=== PATIENT | female | born 1965 | race Caucasian/White ===

== ENCOUNTER 2018-11-23 15:29 | Emergency (ER) | payer BC ==
--- OUTSIDE RECORDS SUMMARY | 2018-11-23 15:33 | XMS REPORT ---
:1965 [facility] Address [address] [place] [address] Dr. Waldrop [address] [place] [id number] Care Team Providers Name Role Phone Unavailable Unavailable Unavailable Problems This patient has no known problems. Allergies, Adverse Reactions, Alerts This patient has no known allergies or adverse reactions. Medications This patient has no known medications.
--- OUTSIDE RECORDS SUMMARY | 2018-11-23 15:33 | XMS REPORT | Clinical Summary ---
:1965 Author Organization [facility] Address [address] [place] [address] Care Team Providers Name Role Phone Jeovanny Campos MD Primary Care Provider Allergies No Known Allergies Medications Medication Sig Dispensed Refills Start Date End Date Status lisinopril Take 5 mg by 0 Active (PRINIVIL,ZESTRIL) mouth daily. 5 mg tablet sertraline (ZOLOFT) Take 50 mg by 0 Active 50 MG tablet mouth daily. pantoprazole Take 40 mg by 0 Active (PROTONIX) 40 MG EC mouth daily. tablet b complex vitamins Take 1 capsule 0 Active capsule by mouth daily. meloxicam (MOBIC) TAKE ONE (1) 30 tablet 2 11/04/2018 Active 15 mg tablet TABLET(S) BY MOUTH ONCE A DAY WITH FOOD. atorvastatin Take 10 mg by 0 01/19/2018 Discontinued (LIPITOR) 10 MG mouth. tablet omega-3 fatty Take 2 g by 0 03/30/2018 Discontinued acids-fish oil mouth daily. (FISH OIL) 300-1,000 mg capsule calcium carbonate Chew 1 tablet 0 03/30/2018 Discontinued (TUMS) 200 mg daily. calcium (500 mg) chewable tablet keTOROlac (TORadol) Take 1 tablet 15 tablet 0 04/02/2018 04/07/2018 10 mg tablet (10 mg total) by mouth 3 (three) times a day for 5 days. HYDROcodone-acetami Take 1-2 30 tablet 0 04/02/2018 04/09/2018 nophen (NORCO) tablets by 5-325 mg per tablet mouth every 6 (six) hours as needed (pain) for up to 7 days. Max Daily Amount: 8 tablets meloxicam (MOBIC) Take 1 tablet 30 tablet 3 06/12/2018 11/04/2018 Discontinued 15 mg tablet (15 mg total) by mouth daily for 120 days. Take with food Active Problems Problem Noted Date Sprain of interphalangeal joint of right index finger 06/12/2018 Tear of medial meniscus of right knee, current, initial encounter 03/29/2018 Overview: Added automatically from request for surgery [id number] Sprain of metacarpophalangeal (MCP) joint of right index finger 01/10/2018 Neck mass 01/05/2017 Encounters Date Type Specialty Care Team Description 11/04/2018 Refill Orthopedic Abel Handy Surgery MD Harish 06/12/2018 Office Visit Orthopedic Abel Handy Sprain of metacarpophalangeal (MCP) joint of right index finger, initial encounter ( Primary Dx); Surgery MD Harish Sprain of interphalangeal joint of right index finger, initial encounter 04/10/2018 Office Visit Orthopedic Timothy Cain Tear of medial meniscus of Surgery MD Christoph right knee, current, unspecified tear type, initial encounter (Primary Dx) 04/02/2018 Anesthesia Event General Surgery Jessika Velazquez FNP 04/02/2018 Surgery General Surgery Timothy Cain Right Knee Arthroscopic MD Christoph Partial Medial Menisectomy, lateral meniscus repair 04/02/2018 Hospital Encounter General Surgery Timothy Cain MD 03/30/2018 Pre-Admit Testing Pre-Admission Timothy Cain Preop testing ( Primary Dx) Appointment Testing MD Christoph 03/30/2018 Orders Only Orthopedic Krish, Acute medial meniscus tear Surgery Romina, MA of right knee, subsequent encounter (Primary Dx) 03/29/2018 Office Visit Orthopedic Timothy Cain Tear of medial meniscus of Surgery MD Christoph right knee, current, unspecified tear type, initial encounter (Primary Dx) 03/29/2018 Transcribe Orders Orthopedic Timothy Cain Tear of medial meniscus of Surgery MD Christoph right knee, current, initial encounter (Primary Dx) 03/22/2018 Hospital Encounter Radiology Darci Marrero Arthralgia of knee, right A., DO 03/09/2018 Orders Only Sports Medicine Nicole Campos, Arthralgia of knee, right MA (Primary Dx) 03/03/2018 Hospital Encounter Radiology Darci Marrero Sprain of A., DO metacarpophalangeal (MCP) joint of right index finger, subsequent encounter 02/14/2018 Office Visit Sports Medicine JanesDarci Sprain of metacarpophalangeal (MCP) joint of right index finger, subsequent encounter ( Primary Dx); A., DO Peripheral tear of medial meniscus of right knee as current injury, initial encounter; Chronic pain of right knee 01/19/2018 Office Visit Sports Medicine JanesDarci Sprain of metacarpophalangeal (MCP) joint of right index finger, initial encounter ( Primary Dx); A., DO Right hand pain after 11/22/2017 Immunizations Name Dates Previously Given Next Due Influenza, Unspecified 06/04/2017 Family History Medical History Relation Name Comments Cancer Father Diabetes Mother Relation Name Status Comments Father Mother Alive Social History Tobacco Use Types Packs/Day Years Used Date Former Smoker Cigarettes 0.25 10 Quit: 1990 Smokeless Tobacco: Never Used Tobacco Cessation: Counseling Given: No Comments: quit 37 yrs ago Alcohol Use Drinks/Week oz/Week Comments Yes 2 Cans of beer 1.2 2 drinks/day Sex Assigned at Date Recorded Not on file Job Start Date Occupation Industry Not on file Not on file Not on file Travel History Travel Start Travel End No recent travel history available. Last Filed Vital Signs Vital Sign Reading Time Taken Blood Pressure 153/74 04/02/2018 7:05 PM CDT Pulse 68 04/02/2018 7:05 PM CDT Temperature 36.8 C (98.2 F) 04/02/2018 6:45 PM CDT Respiratory Rate 20 04/02/2018 7:05 PM CDT Oxygen Saturation 100% 04/02/2018 7:05 PM CDT Inhaled Oxygen Concentration - - Weight 73.5 kg (162 lb) 04/02/2018 1:11 PM CDT Height 172.7 cm (5' 8") 03/30/2018 2:31 PM CDT Body Mass Index 24.63 04/02/2018 1:11 PM CDT Plan of Treatment Health Maintenance Due Date Last Done Comments CERVICAL CANCER SCREENING 12/14/1984 BREAST CANCER SCREENING 12/14/2013 COLON CANCER SCREENING 12/14/2013 SHINGLES VACCINES (#1) 12/14/2013 INFLUENZA VACCINE 04/04/2018 06/04/2017 Implants Implanted Type Area [employer] Device Shelf Model / Identifier Expiration Serial / Date Lot System Mnscl Rpr Crvd Fast-Fix 360 - [id number] Surgical Right: MEDINA AND 06/08/2020 [id number] / Implanted: 04/02/2018 (Quantity not on file) Implants; Knee NEPHEW / Expanders; ENDOSCOPY [id number] Extenders; Surgical Wires Procedures Procedure Name Priority Date/Time Associated Diagnosis Comments IA ARTHROCENTESIS Routine 06/12/2018 Sprain of Results for ASPIR&/INJ SMALL 1:50 PM CDT metacarpophalangeal (MCP) this procedure JT/BURSA W/O US joint of right index are in the finger, initial encounter results section. POC GLUCOSE Routine 04/02/2018 Results for 5:04 PM CDT this procedure are in the results section. IA AN PERIPHERAL Routine 04/02/2018 BLOCK POST-OP PAIN 2:24 PM CDT Procedure Note - Sheri Johnson MD - 04/02/2018 2:24 PM CDT Peripheral Block Performed by: SHERI JOHNSON Authorized by: SHERI JOHNSON Patient Location: Block room Start Time: 04/02/2018 2:18 PM End Time: 04/02/2018 2:24 PM Reason for Block: at surgeon's request, post-op pain management Staff: Anesthesiologist: SHERI JOHNSON Performed by: Anesthesiologist Preprocedure: patient identified, IV checked, site and side verified, risks and benefits discussed, procedure verified, surgical consent complete, patient position confirmed, monitors and equipment checked, pre-op evaluation complete and site marked Time Out Performed: 04/02/2018 2:18 PM Peripheral Nerve Block: Patient Position: Supine and pertinent anatomy defined Prep: ChloraPrep and DuraPrep Monitoring: Blood pressure monitoring, continuous pulse oximetry and heart rate Block Type: Saphenous Laterality: Right Injection Technique: Single injection Procedures: ultrasound guided Ultrasound documentation: Printed/placed in chart and still images obtained Local Infiltration (See MAR for details): Ropivacaine Needle: Needle Type: Pajunk Needle Gauge: 21 G Needle Length: 10 cm Assessment: Injection Assessment: Visualized needle/local anesthetic surrounding nerve , visualized pertinent vascular structures and nerves, needle tip visualized at all times during injection of medication, intermittent aspiration during local anesthetic administration and no symptoms of intraneural/intravenous injection Heart Rate Change: No Slow Fractionated Injection: Yes Block outcome: No apparent complications, patient comfortable and patient tolerated procedure well POC GLUCOSE Routine 04/02/2018 1:17 Results for PM CDT this procedure are in the results section. ZZESTIMATED GFR Routine 03/30/2018 2:43 Results for PM CDT this procedure are in the results section. HC COMPLETE BLD COUNT Routine 03/30/2018 2:43 Preop testing Results for W/AUTO DIFF PM CDT this procedure are in the results section. BASIC METABOLIC PANEL Routine 03/30/2018 2:43 Preop testing Results for PM CDT this procedure are in the results section. ECG PRE/POST OP Routine 03/30/2018 1:56 Preop testing Results for PM CDT this procedure are in the results section. MRI KNEE WO CONTRAST Routine 03/22/2018 3:57 Arthralgia of knee, right Results for RIGHT PM CDT this procedure are in the results section. MRI UPPER EXTREMITY Routine 03/03/2018 3:14 Sprain of Results for WO CONTRAST RIGHT PM CDT metacarpophalangeal (MCP) this procedure joint of right index are in the finger, subsequent results encounter section. IA ARTHROCENTESIS Routine 02/14/2018 3:30 Peripheral tear of medial Results for ASPIR&/INJ MAJOR PM CDT meniscus of right knee as this procedure JT/BURSA W/O US current injury, initial are in the encounter results section. XR KNEE 4+ VW RIGHT Routine 02/14/2018 3:24 Chronic pain of right Results for PM CDT knee this procedure are in the results section. XR HAND 3+ VW RIGHT Routine 01/19/2018 3:43 Right hand pain Results for PM CDT this procedure are in the results section. after 11/22/2017 Results Small Joint Arthrocentesis (06/12/2018 1:50 PM CDT) Narrative Performed At Abel Handy MD 06/12/20182:22 PM Small Joint Arthrocentesis Consent given by: patient Site marked: site marked Timeout: Immediately prior to procedure a time out was called to verify the correct patient, procedure, equipment, developer support engineer and site/side marked as required Supporting Documentation Indications: pain Procedure Details Preparation: Patient was prepped and draped in the usual sterile fashion Ultrasound guided: no Platelet Rich Plasma Used: no PRP Used Location: index finger - R index MCP Right side: Needle size: 27 G Right index finger medications administered: 3 mg betamethasone acetate & sodium phosphate 6 mg/mL; 0.5 mL lidocaine 10 mg/mL (1 %) Patient tolerance: patient tolerated the procedure well with no immediate complications POC glucose (04/02/2018 5:04 PM CDT)Only the most recent of2 resultswithin the time period is included. POC glucose 125 (H) 65 - 99 mg/dL [facility] DEPARTMENT OF PATHOLOGY AND Comment: GENOMIC MEDICINE Meter ID: [id number] Corporate Treasury Analyst: Brendan Stewart Performing Organization Address [facility] [place] [facility] DEPARTMENT OF PATHOLOGY [address] [place] [address] AND [email or web address] Estimated GFR (03/30/2018 2:43 PM CDT) GFR Non Af Amer 87 mL/min/1.73 m2 [facility] DEPARTMENT OF PATHOLOGY AND GENOMIC MEDICINE GFR Af Amer >90 mL/min/1.73 m2 [facility] DEPARTMENT OF Comment: PATHOLOGY AND GENOMIC Chronic kidney disease: <60 mL/min/1.73m2 MEDICINE Kidney failure: <15 mL/min/1.73m2 The estimated GFR is calculated from the IDMS-traceable Modification of Diet in Renal Disease Equation. The accuracy of the calculation is poor when the creatinine is normal. Calculated values >90 mL/min/1.73m2 are not reported. This equation has not been validated in children (<18 years), women, the elderly (>70 years), or ethnic groups other than Caucasians and Americans. Specimen Plasma specimen Performing Organization Address [facility] Phone Number [facility] DEPARTMENT OF PATHOLOGY [address] [place] [address] AND [email or web address] CBC with platelet and differential (03/30/2018 2:43 PM CDT) WBC 6.9 4.5 - 11.0 k/uL [facility] DEPARTMENT OF PATHOLOGY AND GENOMIC MEDICINE RBC 4.44 4.20 - 5.50 m/uL [facility] DEPARTMENT OF PATHOLOGY AND GENOMIC MEDICINE HGB 14.8 12.0 - 16.0 g/dL [facility] DEPARTMENT OF PATHOLOGY AND GENOMIC MEDICINE HCT 43.7 37.0 - 47.0 % [facility] DEPARTMENT OF PATHOLOGY AND GENOMIC MEDICINE MCV 98.4 82.0 - 100.0 fL [facility] DEPARTMENT OF PATHOLOGY AND GENOMIC MEDICINE MCH 33.3 27.0 - 34.0 pg [facility] DEPARTMENT OF PATHOLOGY AND GENOMIC MEDICINE MCHC 33.9 31.0 - 37.0 g/dL [facility] DEPARTMENT OF PATHOLOGY AND GENOMIC MEDICINE RDW - SD 45.6 37.0 - 55.0 fL [facility] DEPARTMENT OF PATHOLOGY AND GENOMIC MEDICINE MPV 10.8 6.9 - 11.0 fL [facility] DEPARTMENT OF PATHOLOGY AND GENOMIC MEDICINE Platelet count 257 150 - 400 K/uL [facility] DEPARTMENT OF PATHOLOGY AND GENOMIC MEDICINE Nucleated RBC 0.00 /100 WBC [facility] DEPARTMENT OF PATHOLOGY AND GENOMIC MEDICINE Neutrophils 65.6 39.0 - 69.0 % [facility] DEPARTMENT OF PATHOLOGY AND GENOMIC MEDICINE Lymphocytes 23.3 (L) 25.0 - 45.0 % [facility] DEPARTMENT OF PATHOLOGY AND GENOMIC MEDICINE Monocytes 7.0 0.0 - 10.0 % [facility] DEPARTMENT OF PATHOLOGY AND GENOMIC MEDICINE Eosinophils 2.8 0.0 - 5.0 % [facility] DEPARTMENT OF PATHOLOGY AND GENOMIC MEDICINE Basophils 1.0 0.0 - 1.0 % [facility] DEPARTMENT OF PATHOLOGY AND GENOMIC MEDICINE Immature granulocytes 0.3 0.0 - 1.0 % [facility] DEPARTMENT OF PATHOLOGY AND GENOMIC MEDICINE Specimen Blood Performing Organization Address [facility] Phone Number [facility] DEPARTMENT OF PATHOLOGY [address] [place] [address] AND [email or web address] Basic metabolic panel (03/30/2018 2:43 PM CDT) Sodium 138 135 - 148 mEq/L [facility] DEPARTMENT OF PATHOLOGY AND GENOMIC MEDICINE Potassium 4.1 3.5 - 5.0 mEq/L [facility] DEPARTMENT OF PATHOLOGY AND GENOMIC MEDICINE Chloride 102 98 - 112 mEq/L [facility] DEPARTMENT OF PATHOLOGY AND GENOMIC MEDICINE CO2 20 (L) 24 - 31 mEq/L [facility] DEPARTMENT OF PATHOLOGY AND GENOMIC MEDICINE Anion gap 16@ANIO (H) 7 - 15 mEq/L [facility] DEPARTMENT OF PATHOLOGY AND GENOMIC MEDICINE BUN 11 6 - 20 mg/dL [facility] DEPARTMENT OF PATHOLOGY AND GENOMIC MEDICINE Creatinine 0.7 0.5 - 0.9 mg/dL [facility] DEPARTMENT OF PATHOLOGY AND GENOMIC MEDICINE Glucose 206 (H) 65 - 99 mg/dL [facility] DEPARTMENT OF PATHOLOGY AND GENOMIC MEDICINE Calcium 9.1 8.3 - 10.2 mg/dL [facility] DEPARTMENT OF PATHOLOGY AND GENOMIC MEDICINE Specimen Plasma specimen Performing Organization Address [facility] Phone Number [facility] DEPARTMENT OF PATHOLOGY [address] [place] [address] AND [email or web address] ECG Pre/Post Op (03/30/2018 1:56 PM CDT) Ventricular rate 74 [facility] Atrial rate 74 [facility] IA interval 124 [facility] QRSD interval 72 [facility] QT interval 402 [facility] QTC interval 446 [facility] P axis 1 53 [facility] QRS axis 1 -14 [facility] T wave axis 14 [facility] EKG impression Normal sinus rhythm-Normal ECG-In automated [facility] comparison with ECG of 14-DEC-2016 13:09,-No significant change was found- Performing Organization Address City/State/Zipcode Phone Number [facility] [address] [place] [address] MRI Knee Right Wo Contrast (03/22/2018 3:57 PM CDT) Narrative Performed At EXAMINATION:MRI KNEE WO CONTRAST RIGHT [facility] CLINICAL HISTORY:M25.561 Pain in right knee, right knee pain TECHNIQUE:Multiplanar multisequence MR imaging of the knee was performed without contrast. COMPARISON:Right knee radiographs dated 02/14/2018 FINDINGS: 1. Cruciate ligaments: Intact. 2. Collateral ligaments: Intact. 3. Medial Meniscus: Bucket-handle tear of the medial meniscus with a flap fragment extending into the intercondylar notch the meniscus is extruded. The tear involves the entirety of the circumference of the meniscus. 4. Medical Compartment Cartilage: Grade 2-3 chondromalacia of the central cartilage of the medial femoral condyle more than the medial tibial plateau. No focal grade 4 defect is seen. 5. Lateral Meniscus: Free edge fraying of the body of the lateral meniscus without a discrete tear. 6. Lateral Compartment Cartilage: Low-grade chondromalacia. 7. Patellofemoral Compartment: Low-grade chondromalacia along the medial facet and within the trochlear sulcus. No high-grade defect is seen. 8. Extensor mechanism: Tendinopathy without tear. 9. Effusion: Large knee joint effusion with synovitis. No discrete body is seen. 10. Bone marrow: There is an enchondroma of the proximal tibia measuring approximately 1.5 x 1.3 cm in size. 11. Soft tissues: Subcutaneous edema surrounding the distal thigh and proximal leg. There is a shallow edema involving the soleus, gastrocnemius, and popliteus which may be secondary to low-grade myofascial strain. IMPRESSION: 1.Bucket-handle tear of the medial meniscus with a large displaced flap fragment in the intercondylar notch. 2.Additional findings as above. [id number] Procedure Note Interface, Radiology Results Incoming - 03/22/2018 4:17 PM CDT EXAMINATION: MRI KNEE WO CONTRAST RIGHT CLINICAL HISTORY: M25.561 Pain in right knee, right knee pain TECHNIQUE: Multiplanar multisequence MR imaging of the knee was performed without contrast. COMPARISON: Right knee radiographs dated 02/14/2018 FINDINGS: 1. Cruciate ligaments: Intact. 2. Collateral ligaments: Intact. 3. Medial Meniscus: Bucket-handle tear of the medial meniscus with a flap fragment extending into the intercondylar notch the meniscus is extruded. The tear involves the entirety of the circumference of the meniscus. 4. Medical Compartment Cartilage: Grade 2-3 chondromalacia of the central cartilage of the medial femoral condyle more than the medial tibial plateau. No focal grade 4 defect is seen. 5. Lateral Meniscus: Free edge fraying of the body of the lateral meniscus without a discrete tear. 6. Lateral Compartment Cartilage: Low-grade chondromalacia. 7. Patellofemoral Compartment: Low-grade chondromalacia along the medial facet and within the trochlear sulcus. No high-grade defect is seen. 8. Extensor mechanism: Tendinopathy without tear. 9. Effusion: Large knee joint effusion with synovitis. No discrete body is seen. 10. Bone marrow: There is an enchondroma of the proximal tibia measuring approximately 1.5 x 1.3 cm in size. 11. Soft tissues: Subcutaneous edema surrounding the distal thigh and proximal leg. There is a shallow edema involving the soleus, gastrocnemius, and popliteus which may be secondary to low-grade myofascial strain. IMPRESSION: 1. Bucket-handle tear of the medial meniscus with a large displaced flap fragment in the intercondylar notch. 2. Additional findings as above. [id number] Performing Organization Address City/State/Zipcode Phone Number [facility] [address] [place] [address] MRI Upper Extremity Wo Contrast Right (03/03/2018 3:14 PM CDT) Narrative Performed At EXAMINATION:MRI UPPER EXTREMITY WO CONTRAST RIGHT [facility] CLINICAL HISTORY:S63.650D Sprain of metacarpophalangeal joint of right index fingersubsequent encounter, right hand pain TECHNIQUE: Multiplanar, multisequence MR imaging examination ofright hand , without contrast.. COMPARISON:X-ray, 01/19/2018 IMPRESSION: 1.Sprain of the main lateral collateral ligament of the second MCP joint, with low-grade partial tearing of the proximal attachment. The accessory collateral is well-maintained. 2.Mild sprain of the main medial collateral ligament of the second MCP joint. Equivocal low-grade partial tearing of the distal attachment. Detail limited by the large [id number] (entire hand). T he accessory collateral ligament is well-maintained. 3.Reactive capsular edema. 4.Volar subluxation of the base of the second proximal phalanx at the MCP joint secondary to the main collateral ligament pathology discussed above. Mild extensor digitorum peritendinitis and tendin itis of the index finger. No discrete tear identified. Mild sprains of the sagittal bands. The extensor tendon remains normally positioned. The flexor digitorum tendons are well-maintained. 5.Mild to moderate degenerative changes in the fingers diffusely. 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 Marrow cystic change in the triquetrum degenerative in etiology. SUMMARY: Moderate lateral and mild to moderate medial main collateral ligament sprains of the second MCP joint. Mild sprains of the sagittal bands, with mild extensor tendinitis and peritendinitis, and mild vola r subluxation of the base of the second proximal phalanx at the MCP joint. [id number] Procedure Note Interface, Radiology Results - 03/03/2018 6:41 PM CDT EXAMINATION: MRI UPPER EXTREMITY WO CONTRAST RIGHT CLINICAL HISTORY: S63.650D Sprain of metacarpophalangeal joint of right index finger subsequent encounter, right hand pain TECHNIQUE: Multiplanar, multisequence MR imaging examination of right hand , without contrast.. COMPARISON: X-ray, 01/19/2018 IMPRESSION: 1. Sprain of the main lateral collateral ligament of the second MCP joint, with low-grade partial tearing of the proximal attachment. The accessory collateral is well-maintained. 2. Mild sprain of the main medial collateral ligament of the second MCP joint. Equivocal low-grade partial tearing of the distal attachment. Detail limited by the large [id number] (entire hand). The accessory collateral ligament is well-maintained. 3. Reactive capsular edema. 4. Volar subluxation of the base of the second proximal phalanx at the MCP joint secondary to the main collateral ligament pathology discussed above. Mild extensor digitorum peritendinitis and tendinitis of the index finger. No discrete tear identified. Mild sprains of the sagittal bands. The extensor tendon remains normally positioned. The flexor digitorum tendons are well-maintained. 5. Mild to moderate degenerative changes in the fingers diffusely. 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 Marrow cystic change in the triquetrum degenerative in etiology. SUMMARY: Moderate lateral and mild to moderate medial main collateral ligament sprains of the second MCP joint. Mild sprains of the sagittal bands, with mild extensor tendinitis and peritendinitis, and mild volar subluxation of the base of the second proximal phalanx at the MCP joint. [id number] Performing Organization Address City/State/Zipcode Phone Number [facility] [address] [place] [address] Large Joint Arthrocentesis (02/14/2018 3:30 PM CDT) Narrative Performed At Darci Marrero DO 02/14/20183:54 PM Large Joint Arthrocentesis Consent given by: patient Site marked: site marked Supporting Documentation Indications: pain and joint swelling Procedure Details Preparation: Patient was prepped and draped in the usual sterile fashion Ultrasound guided: no Platelet Rich Plasma Used: no PRP Used Location: knee - R knee Right side: Needle size: 25 G Approach: anterolateral Right knee medications administered: 40 mg methylPREDNISolone acetate 40 mg/mL; 1 mL bupivacaine 0.5 % (5 mg/mL); 1 mL lidocaine 10 mg/mL (1 %) Patient tolerance: patient tolerated the procedure well with no immediate complications XR Knee 4+ Vw Right (02/14/2018 3:24 PM CDT) Narrative Performed At Surgical plate and screws on tibial plateau intact on L knee.No acute HM RADIANT process noted on bilateral knees.Joint space maintained Performing Organization Address [facility] Phone Number [facility] [address] [place] [address] XR Hand 3+ Vw Right (01/19/2018 3:43 PM CDT) Impressions Performed At Negative study. HM RADIANT Narrative Performed At FINDINGS: 3 views demonstrate no fracture, dislocation or radiopaque HM RADIANT foreign body. There is no chondrocalcinosis or soft tissue calcification. Joint spaces are within normal limits. Performing Organization Address [facility] Phone Number [facility] [address] [place] [address] after 11/22/2017 Insurance Payer Benefit Plan / Group Subscriber ID Type Phone Address [facility] F[facility] PATIÑO xxxxxxxxxxxx PPO (Home) [address] [place] [id number] Advance Directives Patient has advance care planning documents on file. For more information, please contact:Ruddy Morgan[address] [place] [address]
[2018-11-23] MEDS ORDERED: ONDANSETRON 4 MG/2 ML VIAL ONE ×3 (16:07→19:36)
[2018-11-23] MEDS ORDERED: NA CHLORIDE 0.9% 1,000 ML ONE (16:14)
[2018-11-23] MEDS ORDERED: MORPHINE 4 MG/ML SYR ONE (16:21)
[2018-11-23] MEDS ORDERED: KETOROLAC 30 MG/ML INJ ONE (16:21)
--- NOTE | 2018-11-23 16:32 | RAD REPORT ---
EXAM DESCRIPTION: CT - Stone Protocol - 11/23/2018 4:20 pm CLINICAL HISTORY: Abdominal pain. Urinary tract infection COMPARISON: 2009 TECHNIQUE: Computed axial tomography of the abdomen pelvis was obtained without oral or IV contrast. Lack of IV and oral contrast limits evaluation of solid organs, bowel, and vessels. Coronal reformat jc images were obtained and reviewed. All CT scans are performed using dose optimization technique as appropriate and may include automated exposure control or mA/KV adjustment according to patient size. FINDINGS: A 1 millimeter left renal calculus is seen. Mild to moderate left hydronephrosis is presen t. Left ureter is dilated. A 5 x 1.5 millimeter calculus is present within the left ureteral vesicle junction. Small left renal cyst suspected A right renal calculus is not seen. The liver, spleen, pancreas and adrenals appear grossly normal There is no evidence of diverticulitis. The appendix appears normal IMPRESSION: 5 x 1.5 millimeter calculus left ureterovesical junction resulting in mild to moderate h ydronephrosis
[2018-11-23 17:13] LABS: Absolute Monocytes 0.6 K/uL (0.1-1.3); Absolute Neutrophil 5.3 K/uL (1.8-8.0); Basophils % 1.1 % (0-1.3); Eosinophils % 4.4 % (0-4.4); Hematocrit 47.6 % (36.0-45.0); Lymphocytes % 31.9 % (15.3-44.8); MPV 10.1 fL (7.6-11.3); Monocytes % 6.8 % (3.3-12.3); RBC Red Blood Cell Count 4.85 M/uL (3.86-4.86)
[2018-11-23 17:37] LABS: Bilirubin Direct 0.1 mg/dL (0-0.2); Bilirubin Total 0.5 mg/dL (0.2-1.0); Potassium 3.9 mmol/L (3.5-5.1); Protein, Total 7.5 g/dL (6.4-8.2)
[2018-11-23 17:40] LABS: Urine Blood 2+ (NEG); Urine Glucose 1+ (NEG); Urine Protein 2+ (NEG)
[2018-11-23] MEDS ORDERED: TAMSULOSIN 0.4 MG SR CAP ONE (17:56)
[2018-11-23] MEDS ORDERED: HYDROMORPHONE HCL 1 MG/ML INJ ONE (17:56)
[2018-11-23] MEDS ORDERED: CEFTRIAXONE/SWI 1gm 1 GM/10 ML SYR ONE (17:57)
--- NOTE | 2018-11-23 18:38 | RAD REPORT ---
EXAM DESCRIPTION: RAD - Abdomen 1 View (KUB) - 11/23/2018 6:18 pm CLINICAL HISTORY: Abdomen pain. FINDINGS: The bowel gas pattern is unremarkable. A 5 millimeter left UVJ calculus present
--- NOTE | 2018-11-23 18:42 | EDPHYS ---
Physician Documentation [facility] Name: December Karely Age: 52 yrs Sex: Female : 1965 Arrival Date: 11/23/2018 Time: 15:30 Bed 15 Private MD: Kamar Campos B ED Physician Hiram Reed HPI: 11/23 17:29 This 52 yrs old Female presents to ER via Ambulatory with complaints of Flank sarkis Pain, Urinary Problem. 17:29 The patient complains of pain in the left low back and left mid back. The pain sarkis radiates. Onset: The symptoms/episode began/occurred 3 day(s) ago. Modifying factors: The symptoms are alleviated by nothing. the symptoms are aggravated by nothing. Associated signs and symptoms: The patient has no apparent associated signs or symptoms. Severity of pain: At its worst the pain was severe in the emergency department the pain has improved moderately. The patient has not experienced similar symptoms in the past. 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 - Social history:: Smoking status: Patient/guardian denies using tobacco. - Ebola Screening: : Patient negative for fever greater than or equal to 101.5 degrees Fahrenheit, and additional compatible Ebola Virus Disease symptoms Patient denies exposure to infectious person Patient denies travel to an Ebola-affected area in the 21 days before illness onset No symptoms or risks identified at this time. ROS: 17:29 Constitutional: Negative for fever, chills, and weight loss, Eyes: Negative for injury, sarkis pain, redness, and discharge, ENT: Negative for injury, pain, and discharge, Neck: Negative for injury, pain, and swelling, Cardiovascular: Negative for chest pain, palpitations, and edema, Respiratory: Negative for shortness of breath, cough, wheezing, and pleuritic chest pain, : Negative for injury, bleeding, discharge, and swelling, MS/Extremity: Negative for injury and deformity, Skin: Negative for injury, rash, and discoloration, Neuro: Negative for headache, weakness, numbness, tingling, and seizure, Psych: Negative for depression, anxiety, suicide ideation, homicidal ideation, and hallucinations, Allergy/Immunology: Negative for hives, rash, and allergies, Endocrine: Negative for neck swelling, polydipsia, polyuria, polyphagia, and marked weight changes, Hematologic/Lymphatic: Negative for swollen nodes, abnormal bleeding, and unusual bruising. 17:29 Abdomen/GI: Positive for abdominal pain, of the posterior aspect of left lateral abdomen, anterior aspect of left lateral abdomen and left lower quadrant. Exam: 17:29 Constitutional: This is a well developed, well nourished patient who is awake, alert, sarkis and in no acute distress. Head/Face: Normocephalic, atraumatic. Eyes: Pupils equal round and reactive to light, extra-ocular motions intact. Lids and lashes normal. Conjunctiva and sclera are non-icteric and not injected. Cornea within normal limits. Periorbital areas with no swelling, redness, or edema. ENT: Nares patent. No nasal discharge, no septal abnormalities noted. Tympanic membranes are normal and external auditory canals are clear. Oropharynx with no redness, swelling, or masses, exudates, or evidence of obstruction, uvula midline. Mucous membranes moist. Neck: Trachea midline, no thyromegaly or masses palpated, and no cervical lymphadenopathy. Supple, full range of motion without nuchal rigidity, or vertebral point tenderness. No Meningismus. Chest/axilla: Normal chest wall appearance and motion. Nontender with no deformity. No lesions are appreciated. Cardiovascular: Regular rate and rhythm with a normal S1 and S2. No gallops, murmurs, or rubs. Normal PMI, no JVD. No pulse deficits. Respiratory: Lungs have equal breath sounds bilaterally, clear to auscultation and percussion. No rales, rhonchi or wheezes noted. No increased work of breathing, no retractions or nasal flaring. Female : Normal external genitalia. Skin: Warm, dry with normal turgor. Normal color with no rashes, no lesions, and no evidence of cellulitis. MS/ Extremity: Pulses equal, no cyanosis. Neurovascular intact. Full, normal range of motion. Neuro: Awake and alert, GCS 15, oriented to person, place, time, and situation. Cranial nerves II-XII grossly intact. Motor strength 5/5 in all extremities. Sensory grossly intact. Cerebellar exam normal. Normal gait. Psych: Awake, alert, with orientation to person, place and time. Behavior, mood, and affect are within normal limits. 17:29 Abdomen/GI: Inspection: abdomen appears normal, Bowel sounds: normal, Palpation: mild abdominal tenderness, in the posterior aspect of left lateral abdomen, anterior aspect of left lateral abdomen and left lower quadrant, Liver: no appreciated palpable abnormalities, Hernia: not appreciated. Vital Signs: 16:30 BP 135 / 74; Pulse 55; Resp 18; Pulse Ox 97% on R/A; Pain 7/10; em 17:10 Temp 98.5(O); em 18:30 BP 128 / 67; Pulse 55; Resp 20; Pulse Ox 96% on R/A; Pain 3/10; em 19:30 BP 121 / 82; Pulse 59; Resp 16; Temp 98.4; Pulse Ox 98% on R/A; rr5 21:00 BP 121 / 75; Pulse 57; Resp 17; Pulse Ox 100% ; rr5 22:00 BP 119 / 76; Pulse 57; Resp 15; Pulse Ox 100% ; rr5 23:18 BP 122 / 79; Pulse 58; Resp 16; Pulse Ox 99% ; rr5 MDM: 15:59 Patient medically screened. [facility] 17:31 Data reviewed: vital signs, nurses notes, lab test result(s), radiologic studies, CT sarkis scan, plain films. 11/23 16:01 Order name: Basic Metabolic Panel; Complete Time: 18:33 [facility] 11/23 16:01 Order name: CBC with Diff; Complete Time: 17:25 [facility] 11/23 16:01 Order name: Creatinine for Radiology; Complete Time: 18:33 [facility] 11/23 16:01 Order name: Hepatic Function; Complete Time: 18:33 [facility] 11/23 16:01 Order name: Lipase; Complete Time: 18:33 [facility] 11/23 16:01 Order name: Urine Culture [facility] 11/23 16:01 Order name: CT Stone Protocol; Complete Time: 17:25 [facility] 11/23 17:22 Order name: Urine Dipstick--Ancillary (enter results) 11/23 17:29 Order name: Abdomen 1 View (KUB) XRAY [facility] 11/23 16:01 Order name: IV Saline Lock; Complete Time: 16:14 [facility] 11/23 16:01 Order name: Labs collected and sent; Complete Time: 16:49 [facility] 11/23 16:01 Order name: Urine Dipstick-Ancillary (obtain specimen); Complete Time: 16:49 [facility] Administered Medications: 15:55 Drug: Zofran 4 mg Route: IVP; Site: left forearm; 16:49 Follow up: Response: No adverse reaction; Nausea is decreased em 16:14 Drug: TORadol 30 mg Route: IVP; Site: left forearm; 16:49 Follow up: Response: No adverse reaction; Pain is decreased em 16:14 Drug: morphine 4 mg Route: IVP; Site: left forearm; 16:49 Follow up: Response: No adverse reaction; Pain is decreased em 16:35 Drug: NS 0.9% 1000 ml Route: IV; Rate: 125 ml/hr; Site: left forearm; em 23:00 Follow up: Response: No adverse reaction; IV Status: Completed infusion; Infusion rr5 continued upon transfer; IV Intake: 500ml 18:10 Drug: Rocephin 1 grams Route: IV; Rate: per protocol; Site: left antecubital; iw 18:25 Follow up: Response: No adverse reaction; IV Status: Completed infusion; IV Intake: 10mlem 18:10 Drug: Flomax 0.4 mg Route: PO; iw 18:25 Follow up: Response: No adverse reaction em 18:10 Drug: Dilaudid 1 mg Route: IVP; Site: left forearm; iw 18:25 Follow up: Response: No adverse reaction; Pain is decreased em 18:10 Drug: Zofran 4 mg Route: IVP; Site: left forearm; iw 18:25 Follow up: Response: No adverse reaction em 19:32 Drug: Zofran 4 mg Route: IVP; Site: left forearm; rr5 23:15 Follow up: Response: No adverse reaction rr5 Disposition: 11/23/18 18:41 Transfer ordered to [facility]. Diagnosis are Hydronephrosis with renal and ureteral calculous obstruction, Cystitis. - Reason for transfer: Higher level of care. - Accepting physician is to dr. flower, consult urology. - Condition is Stable. - Problem is new. - Symptoms have improved. Signatures: Dispatcher [employer] July Perez RN RN Hiram Reed MD MD cha Munoz, Edgar, ECHOCARDIOGRAPHY TECH ECHOCARDIOGRAPHY TECH Mitali Weathers, RN RN iw Francisco Raygoza, RN RN rr5 Corrections: (The following items were deleted from the chart) 23: 18:41 11/23/2018 18:41 Transfer ordered to [facility]. Diagnosis is rr5 Hydronephrosis with renal and ureteral calculous obstruction; Cystitis. Reason for transfer: Higher level of care. Accepting physician is to dr. flower, consult urology. Condition is Stable. Problem is new. Symptoms have improved. sarkis
--- NOTE | 2018-11-23 18:42 | ER ---
Nurse's Notes [facility] Name: Susana Cali Age: 52 yrs Sex: Female : 1965 Arrival Date: 11/23/2018 Time: 15:30 Bed 15 Private MD: Kamar Campos B Diagnosis: Hydronephrosis with renal and ureteral calculous obstruction;Cystitis Presentation: 11/23 15:45 Presenting complaint: Patient states: dx with uti on Monday, taking a black and ch white pill. today about 1330 I got sharp back pain. I cant stop vomiting and the pain is incredible. I feel like Im going to pass out, but I cant sit because it hurts too badly. 16:00 Transition of care: patient was not received from another setting of care. Onset of ch symptoms was November 23, 2018 at 13:30. Risk Assessment: Do you want to hurt yourself or someone else? Patient reports no desire to harm self or others. Initial Sepsis Screen: Does the patient meet any 2 criteria? No. Patient's initial sepsis screen is negative. Does the patient have a suspected source of infection? No. Patient's initial sepsis screen is negative. Care prior to arrival: unknown antibiotic. 16:00 Method Of Arrival: Ambulatory 16:00 Acuity: SANDRA 3 ch Triage Assessment: 16:00 General: Appears. General: Appears distressed, Behavior is appropriate for age, pt is ch actively vomiting, states it is from pain. Pain: Complains of pain in left flank, left mid back and posterior aspect of left lateral abdomen Pain currently is 9 out of 10 on a pain scale. 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 - Social history:: Smoking status: Patient/guardian denies using tobacco. - Ebola Screening: : Patient negative for fever greater than or equal to 101.5 degrees Fahrenheit, and additional compatible Ebola Virus Disease symptoms Patient denies exposure to infectious person Patient denies travel to an Ebola-affected area in the 21 days before illness onset No symptoms or risks identified at this time. Screenin:10 Abuse screen: Denies threats or abuse. Nutritional screening: No deficits noted. em Tuberculosis screening: No symptoms or risk factors identified. Fall Risk None identified. Assessment: 16:10 Reassessment: wheeled to CT via wheelchair after pain medication administered, unable em to obtain VS. 16:20 General: Appears in no apparent distress. uncomfortable, Behavior is calm, cooperative, em Denies fever. Pain: Complains of pain in anterior aspect of left lateral abdomen Pain currently is 10 out of 10 on a pain scale. Quality of pain is described as sharp, stabbing. Neuro: Level of Consciousness is awake, alert, obeys commands, Oriented to person, place, time, situation. Cardiovascular: Capillary refill < 3 seconds. Respiratory: Airway is patent Respiratory effort is even, unlabored, Respiratory pattern is regular, symmetrical. GI: Pt is actively vomiting bile, Bowel sounds present X 4 quads. Reports nausea, vomiting. : Reports burning with urination, urinary frequency. Derm: Skin is intact, is healthy with good turgor, Skin is pink, warm \T\ dry. Musculoskeletal: Capillary refill < 3 seconds, Range of motion: intact in all extremities. 17:30 Reassessment: rates pain 8/10, provider at bedside, new medication orders received. em 18:30 Reassessment: Patient appears in no apparent distress at this time. Patient and/or em family updated on plan of care and expected duration. Pain level reassessed. Patient is alert, oriented x 3, equal unlabored respirations, skin warm/dry/pink. rates pain 3/10 Patient states feeling better. Patient states symptoms have improved. 19:00 General: Appears in no apparent distress. comfortable, Behavior is calm, cooperative, rr5 appropriate for age. Pain: Denies pain. Neuro: Level of Consciousness is awake, alert, obeys commands, Oriented to person, place, time, situation, Appropriate for age. Cardiovascular: Capillary refill < 3 seconds Patient's skin is warm and dry. Rhythm is sinus bradycardia. Respiratory: Airway is patent Respiratory effort is even, unlabored, Respiratory pattern is regular, symmetrical. GI: Abdomen is flat, Reports nausea. : Reports burning with urination, pain in left flank(s), urinary frequency. EENT: No signs and/or symptoms were reported regarding the EENT system. Derm: Skin is intact, Skin is pink, warm \T\ dry. Musculoskeletal: Capillary refill < 3 seconds, Range of motion:. 19:30 Reassessment: ED provider aware with order made and carried, patient complaints of rr5 nausea. 20:05 Reassessment: Patient appears in no apparent distress at this time. Patient is alert, rr5 oriented x 3, equal unlabored respirations, skin warm/dry/pink. awaiting for ground EMS Patient states feeling better. Patient states symptoms have improved. 21:00 Reassessment: Patient appears in no apparent distress at this time. Patient is alert, rr5 oriented x 3, equal unlabored respirations, skin warm/dry/pink. no complaints made awaiting for EMS. 22:00 Reassessment: Patient appears in no apparent distress at this time. Patient is alert, rr5 oriented x 3, equal unlabored respirations, skin warm/dry/pink. Patient denies pain at this time. Patient states feeling better. 23:19 Reassessment: Patient appears in no apparent distress at this time. Patient is alert, rr5 oriented x 3, equal unlabored respirations, skin warm/dry/pink. endorsed to [facility] vitally stable no complaints made, with IV cannula G20 at left forearm intact. denies nausea and vomiting. Patient states feeling better. Patient states symptoms have improved. Vital Signs: 16:30 BP 135 / 74; Pulse 55; Resp 18; Pulse Ox 97% on R/A; Pain 7/10; em 17:10 Temp 98.5(O); em 18:30 BP 128 / 67; Pulse 55; Resp 20; Pulse Ox 96% on R/A; Pain 3/10; em 19:30 BP 121 / 82; Pulse 59; Resp 16; Temp 98.4; Pulse Ox 98% on R/A; rr5 21:00 BP 121 / 75; Pulse 57; Resp 17; Pulse Ox 100% ; rr5 22:00 BP 119 / 76; Pulse 57; Resp 15; Pulse Ox 100% ; rr5 23:18 BP 122 / 79; Pulse 58; Resp 16; Pulse Ox 99% ; rr5 ED Course: 15:30 Patient arrived in ED. as 15:31 Kamar Campos MD is Private Physician. as 15:53 Chepe Bruno LVN is Primary Nurse. em 15:59 Hiram Reed MD is Attending Physician. sarkis 16:00 Arm band placed on left wrist. Patient placed in an exam room, on a stretcher, IV ch initiated, medicated for vomiting. pt is ambulatory. report given to Chepe. 16:01 Triage completed. ch 16:03 No provider procedures requiring assistance completed. Inserted saline lock: 20 gauge ch in left forearm, using aseptic technique. Blood collected. 16:[address] via wheelchair. vm2 16:10 Patient has correct armband on for positive identification. Placed in gown. Bed in low em position. Call light in reach. Adult w/ patient. Pulse ox on. NIBP on. 16:18 CT completed. Patient tolerated procedure well. Patient moved back from CT. vm2 16:20 CT Stone Protocol In Process Unspecified. EDMS 18:15 X-ray completed. Patient tolerated procedure well. 18:16 Abdomen 1 View (KUB) XRAY In Process Unspecified. EDMS 23:17 Patient transferred, IV remains in place. intact, bleeding controlled, No rr5 redness/swelling at site. Administered Medications: 15:55 Drug: Zofran 4 mg Route: IVP; Site: left forearm; ch 16:49 Follow up: Response: No adverse reaction; Nausea is decreased em 16:14 Drug: TORadol 30 mg Route: IVP; Site: left forearm; ch 16:49 Follow up: Response: No adverse reaction; Pain is decreased em 16:14 Drug: morphine 4 mg Route: IVP; Site: left forearm; ch 16:49 Follow up: Response: No adverse reaction; Pain is decreased em 16:35 Drug: NS 0.9% 1000 ml Route: IV; Rate: 125 ml/hr; Site: left forearm; em 23:00 Follow up: Response: No adverse reaction; IV Status: Completed infusion; Infusion rr5 continued upon transfer; IV Intake: 500ml 18:10 Drug: Rocephin 1 grams Route: IV; Rate: per protocol; Site: left antecubital; iw 18:25 Follow up: Response: No adverse reaction; IV Status: Completed infusion; IV Intake: 10mlem 18:10 Drug: Flomax 0.4 mg Route: PO; iw 18:25 Follow up: Response: No adverse reaction em 18:10 Drug: Dilaudid 1 mg Route: IVP; Site: left forearm; iw 18:25 Follow up: Response: No adverse reaction; Pain is decreased em 18:10 Drug: Zofran 4 mg Route: IVP; Site: left forearm; iw 18:25 Follow up: Response: No adverse reaction em 19:32 Drug: Zofran 4 mg Route: IVP; Site: left forearm; rr5 23:15 Follow up: Response: No adverse reaction rr5 Intake: 18:25 IV: 10ml; Total: 10ml. em 23:00 IV: 500ml; Total: 510ml. rr5 Outcome: 18:41 ER care complete, transfer ordered by . sarkis 20:00 Transferred by ground EMS to [facility], [facility], Note: Dee GARY rr5 20:00 Condition: stable 20:00 Instructed on the need for transfer. 23:22 Patient left the ED. rr5 Signatures: Dispatcher [employer] July Perez, RN RN Hiram Higgins MD MD cha Munoz, Edgar, FOOD AND BEVERAGE OUTLETS MANAGER FOOD AND BEVERAGE OUTLETS MANAGER Marcella Perez Irene, Romina Bear RN, [facility] Francisco Raygoza, RN RN rr5 Corrections: (The following items were deleted from the chart) 16:01 15:45 Presenting complaint: Patient states: dx with uti on Monday, taking a black ch and white pill. today about 1330 I got sharp back pain ch 16:02 15:47 General: Appears in no apparent distress. uncomfortable, ch 16:02 15:47 BP 1 / ???; ch ch
== END 2018-11-23 23:22 | disposition short-term general hospital (02) ==
LOC: ER 15:29
DX: N13.2 Hydronephrosis with renal and ureteral calculous obstruction (principal); N30.90 Cystitis, unspecified without hematuria
CPT/HCPCS: 36415; 74018; 74176; 76377; 80048; 80076; 81003; 83690; 85025; 87086; 87088; 99285; J0696; J1170; J2405; J7030

== ENCOUNTER → 2024-05-02 | Day surgery (SDC) | payer BC ==
[2024-04-25 13:43] LABS: Absolute Eosinophils 0.2 K/uL (0-0.5); Absolute Lymphocytes (CBC) 1.4 K/uL (0.7-4.9); Absolute Monocytes 0.4 K/uL (0.1-1.3); Absolute Neutrophil 2.6 K/uL (1.8-8.0); Basophils % 0.9 % (0-1.3); Eosinophils % 5.2 % (0-4.4); Hematocrit 42.2 % (36.0-45.0); Hemoglobin 14.1 g/dL (12.0-15.0); Lymphocytes % 29.2 % (15.3-44.8); MCH 33.6 pg (27.0-35.0); MCHC 33.3 g/dL (32.0-36.0); MPV 8.7 fL (7.6-11.3); Monocytes % 8.4 % (3.3-12.3); Neutrophils % 56.3 % (41.7-73.7); Platelets 233 thou/uL (152-406); RBC Red Blood Cell Count 4.18 M/uL (3.86-4.86); Red Cell Distribution Width 13.7 % (12.1-15.2)
[2024-04-25 13:50] LABS: Anion Gap 9.1 mEq/L (5.0-15.0); Potassium 4.1 mEq/L (3.5-5.1)
--- NOTE | 2024-04-26 13:30 | EKG ---
Test Date: 2024-04-25 Test Time: 13:19:35 [employer] Director: HELDER MEASUREMENT RESULTS: Intervals: Rate: 74 NV: 140 QRSD: 88 QT: 366 QTc: 406 Hurley: P: 24 NV: 140 QRS: -15 T: 88 INTERPRETIVE STATEMENTS: Normal sinus rhythm Low voltage QRS Borderline ECG Compared to ECG 03/03/2016 10:28:58 Low QRS voltage now present Myocardial infarct finding no longer present Electronically Signed On 04-26-24 13:27:49 CDT by Willie Johnson
[~2024-05-02] MED LIST: EPHEDRINE SULF 50 MG/ML VIAL ONE; FENTANYL CITR 100 MCG/2 ML ONE; LIDOCAINE 1% MPF 5 ML VIAL ONE; MIDAZOLAM HCL 2 MG/2 ML INJ ONE; NA CHLORIDE 0.9% 1,000 ML ONE; ONDANSETRON 4 MG/2 ML VIAL ONE; ROCURONIUM 50 MG/5 ML VIAL IV ONE; dexAMETHasone 4 MG/ML VIAL ONE; propofoL 200 MG/20 ML VIAL IV ONE
[2024-05-02] MEDS: Ringers Lactate 0 ML IV ONE (07:45)
[2024-05-02] MEDS: SCOPOLAMINE HYDROBROMIDE PATCH TD ONE (08:00)
[2024-05-02] MEDS: CEFAZOLIN SODIUM 2 GM/VIAL ONE (09:00)
[2024-05-02] MEDS: NA CHLORIDE 0.9% 1,000 ML ONE (09:00)
[2024-05-02] MEDS: LIDOCAINE HCL/EPINEPHRINE 20 ML MDV ONE (09:30)
--- NOTE | 2024-05-02 10:03 | RAD REPORT ---
EXAM DESCRIPTION: RAD - Fluoroscopy <1 Hour - 05/02/2024 9:57 am CLINICAL HISTORY: SACRAL NEURO MOD COMPARISON: No comparisons FINDINGS: Fluoroscopy time: 0.6 minutes
--- NOTE | 2024-05-02 11:45 | OP ---
Date of Procedure: 05/02/2024 Surgeon: Lina Luciano MD [employer] Online: No assistants. Preoperative Diagnoses: Urge urinary incontinence and refractory overactive bladder. Postoperative Diagnoses: Urge urinary incontinence and refractory overactive bladder. Procedures Performed: (Stage I and II InterStim) Complete InterStim system implantation with incisio n and implantation of tined quadripolar lead electrodes into S3 foramen and fluoroscopic guidance for needle placement and subcutaneous implantation of sacral nerve neurostimulator and electronic analys is and programming. Specimens: No specimens. Complications: No complications. Drains: No drains. Estimated Blood Loss: Minimal. Anesthesia: General endotracheal. Findings: Right S3 was used to place the lead. Leads 1, 2, and 3 had strong Zhanna and toes and le ads 0 had response on Zhanna with a strong toe, but the Zhanna motor response was less stronger nely n on the other leads, well positioned on fluoroscopy after the lead was deployed. Indications: The patient is a 58-year-old female with significant urinary urgency, frequency, and ur gency incontinence. She has been evaluated and negative for infection tumor in the bladder. She had a cystoscopy. Urodynamic testing was done. There was no significant voiding dysfunction. First-li ne therapy including Kegel's exercise, diet changes, behavior modification, timed voiding did not hel p her and when she was started on second-line therapy, VESIcare, which is solifenacin and oxybutynin, she had significant side effects of constipation, dry eyes. Myrbetriq worked initially, but then sy mptoms returned even while on Myrbetriq and significantly worse and her worst complaint was waking up 3 times at night and changing clothes due to the degree of incontinence interrupting her daily life, so we discussed about the options of neurostimulation, neuromodulation versus a Botox injection. Valdemar jeffers wanted to proceed with the neuromodulation option and so she was consented for an office PNE and du ring this, there was significant decrease in her urinary leakage and improvement in her urgency and f requency greater than 50% from her baseline as designated by the log. All leads were removed and she was consented for stage I and II in the hospital. After understanding the benefits and risks and the success of the implant, she was brought to the hospital and re-consen jc in the preop. Description Of Procedure: The patient was taken back to the OR. General endotracheal anesthesia was given while she was on the patient bed. Then, she was transferred to the operating room table in a prone position by the OR protocol. Pillows were placed under her lower abdomen to flatten the sacrum and under the shins to allow the toes to dangle freely. The patient was prepped and draped in a jhoan rile fashion using Betadine. The C-arm was draped and moved into position for fluoroscopic mapping o f the sacral region. Once this was done, surface markings were made 9 cm from the tip of the coccyx at 10, 11, and 12 cm proximal and 2 cm lateral to the midline. Local injection of 1% lidocaine with epinephrine was injected on the right side with significant whea l at the skin site and then in the periosteal area. The patient had a good response on the right haleigh e than on the left during the office PNE and therefore this was chosen first. Foramen needle was introduced at 11 cm up and 2 cm lateral to the midline. Angling towards the S3 fo ramen, the needle was introduced and it dropped right into the foramen. Fluoroscopy was done to conf irm the needle position and AP and lateral positions as this was optimal after adjustment, then this was tested. The needle position was confirmed by observation of strong Zhanna and a plantar flexion of the toe using the external test stimulator. The needle stylet was then removed and directional guide was placed and confirmed fluoroscopically. The needle was then removed. An incision made peripheral to the guide through the fascial layer. Th e introducer sheath and the dilator were placed over the directional guide and directed into the fora men to ensure that the radiopaque marker was right beyond the anterior to the sacrum. The dilator wa s unlocked and removed with a bidirectional guide. The lead was then placed through the introducer s christofer to the first white line and then fluoroscopically adjusted for optimal position where the lead #3 was right at the anterior to the sacrum slightly lower than what I would normally position. The electrode was then tested for motor function including Zhanna and plantar flexion of the toe. T here was a strong response of 1, 2, and 3 leads with toe and Bellow strong response, whereas on lead #0, there is a strong toe and mild Zhanna on the slightly higher amplitude. I had adjusted this already once I decided to leave it in place at optimal function. Further incision was made in the subcutaneous tissue posterior to the iliac crest and lateral to the sacrum, a 5 cm incision after 1% lidocaine was injected, was made with a scalpel and using the Bovie, subcutaneous tissues were dissected to enter the area right above the gluteal fascia. A pocket was created here. This was irrigated with sterile water and antibiotic solution. The tunneling tool with straw was placed from the lead exit site subcutaneously to the incised pocket site. The tunneling tool was removed and the lead was fed through the straw and pulled out of the p ocket side. The lead was cleansed off bodily fluids and dried. It was then inserted into the neuros timulator header and the metal bands were aligned with the blue lead tip clearly visible at the dista l portion of the stimulator header. A single set screw was tightened with a hex wrench. The neurostimulator was then placed in subcutaneous pocket with the etched identification side placed upwards and the excessive lead wrapped counterclockwise. The programming head was placed over the i mplanted neurostimulator in a sterile cover to ensure adequate lead connection and the parameters wer e within normal limits. Once this was checked, the wounds were irrigated again and the subcutaneous sutures with 3-0 Vicryl x3 were placed and then a 4-0 Monocryl simple suture x2 for the insertion sit e and a continuous running 4-0 Monocryl for the pocket site. EBL was minimal. Instrument, needle, a nd sponge counts were correct. After the case was ended, she was transferred to the stretcher in a s table fashion and after extubation, she was taken to PACU in stable condition. She was programmed af ter she was awake and discharged home. She has a 3-week followup. We will call her back in the next few days and adjust her settings as needed. PATRICIA/ANGEL LUIS Voice ID: [id number] Report ID: [id number]
[2024-05-02 12:36] VITALS: BP 111/63; TEMP 97.1; O2SAT 96
== END ==
LOC: OR 07:23
PROVIDERS: ATTEND Obstetrics & Gynecology
PROC: 01HY3MZ Insertion of Neurostimulator Lead into Peripheral Nerve, Percutaneous Approach (ICD-10-PCS; principal; 2024-05-02 08:30)
PROC: 0JH73BZ Insertion of Single Array Stimulator Generator into Back Subcutaneous Tissue and Fascia, Percutaneous Approach (ICD-10-PCS; 2024-05-02 08:30)
DX: N39.41 Urge incontinence (principal); N32.81 Overactive bladder; E11.9 Type 2 diabetes mellitus without complications
CPT/HCPCS: 93005; 85025; 80048; 36415; 82947 ×2; 76000; 64561; 64590; J2704; J1100; J2001; J2250 ×2; J3010; J2405; J7030 ×2; C1778; C1767; J7120